=== PATIENT | female | born 1990 | race American Indian/Alaskan Native ===

== ENCOUNTER 2018-11-10 08:11 | Emergency (ER) | payer MEDICAID ==
--- NOTE | 2018-11-10 09:04 | Emergency Department Report ---
ED Female HPI - General Chief complaint: Abdominal Pain Stated complaint: ABD PAIN/CRAMPIMG Time Seen by Provider: 11/10/18 08:49 Source: patient Mode of arrival: Ambulatory Limitations: No Limitations - History of Present Illness Initial comments: This is a 28-year-old after [place] female who presents with lower abdominal pain for 3 days. Patient reports pain is a sharp pain shooting from the lower abdomen to lower back. Patient reports last menstrual period started on 10/22/2018 and she continues to have spotting every since. Patient states she was wearing panty liners which she changed every 2-4 hours. She is A0. She denies vaginal discharge, urinary frequency, urgency, dysuria, or nausea or vomiting. MD Complaint: vaginal bleeding, pelvic pain Onset/Timin -: days(s) Location: suprapubic Radiation: L flank, R flank Severity: moderate Severity scale (0 -10): 6 Quality: sharp Consistency: intermittent Improves with: none Worsens with: none Are you Now?: No Last Menstrual Period: 10/22/18 EDC: 07/29/19 Associated Symptoms: vaginal bleeding. denies: vaginal discharge, abdominal pain, nausea/vomiting, fever/chills, headaches, loss of appetite, dysuria, hematuria, rash, seizure, shortness of breath, syncope, weakness - Related Data Sexually active: Yes : 2 Para: 2 A: 0 Previous Rx's Medication Instructions Recorded Last Taken Type 21/Iron Fu/Folic Acid 1 each PO DAILY #30 tablet 11/10/18 Unknown Rx [ Complete Caplet] Allergies Allergy/AdvReac Type Severity Reaction Status Date / Time No Known Allergies Allergy Unverified 11/10/18 08:15 ED Review of Systems ROS: Stated complaint: ABD PAIN/CRAMPIMG Other details as noted in HPI Constitutional: denies: chills, fever Respiratory: denies: cough, shortness of breath, wheezing Cardiovascular: denies: chest pain, palpitations Gastrointestinal: abdominal pain. denies: nausea, diarrhea Genitourinary: abnormal menses. denies: urgency, dysuria, discharge Musculoskeletal: back pain (lower back). denies: joint swelling, arthralgia Skin: denies: rash, lesions Neurological: denies: headache, weakness, paresthesias Psychiatric: denies: anxiety, depression ED Past Medical Hx - Past Medical History Previous Medical History?: No - Surgical History Past Surgical History?: Yes Hx Cholecystectomy: Yes Additional Surgical History: Tonsilectomy - Social History Smoking Status: Never Smoker Substance Use Type: None - Medications Home Medications: Home Medications Medication Instructions Recorded Confirmed Last Taken Type 21/Iron Fu/Folic Acid 1 each PO DAILY #30 tablet 11/10/18 Unknown Rx [ Complete Caplet] ED Physical Exam - General Limitations: No Limitations General appearance: alert, in no apparent distress - Respiratory Respiratory exam: Present: normal lung sounds bilaterally. Absent: respiratory distress - Cardiovascular Cardiovascular Exam: Present: regular rate, normal rhythm. Absent: systolic murmur, diastolic murmur, rubs, gallop - GI/Abdominal GI/Abdominal exam: Present: soft, tenderness (left lower quadrant tenderness), normal bowel sounds. Absent: distended, guarding, rebound, rigid, organomegaly, mass, bruit, pulsatile mass, hernia - Back Exam Back exam: Present: normal inspection. Absent: CVA tenderness (R), CVA tendern ess (L) - Neurological Exam Neurological exam: Present: alert, oriented X3, normal gait - Psychiatric Psychiatric exam: Present: normal affect, normal mood - Skin Skin exam: Present: warm, dry, intact, normal color. Absent: rash ED Course Vital Signs 11/10/18 11/10/18 08:33 13:11 Temperature 97.6 F Pulse Rate 106 H 96 H Respiratory 18 Rate Blood Pressure 146/81 136/83 O2 Sat by Pulse 99 99 Oximetry ED Medical Decision Making - Lab Data Result diagrams: 11/10/18 08:59 11/10/18 08:59 Lab Results 11/10/18 11/10/18 11/10/18 Range/Units 08:59 08:59 08:59 WBC 5.6 (4.5-11.0) K/mm3 RBC 3.81 (3.65-5.03) M/mm3 Hgb 11.6 (10.1-14.3) gm/dl Hct 33.2 (30.3-42.9) % MCV 87 (79-97) fl MCH 31 (28-32) pg MCHC 35 H (30-34) % RDW 12.8 L (13.2-15.2) % Plt Count 209 (140-440) K/mm3 Lymph % (Auto) 28.9 (13.4-35.0) % [place] % (Auto) 10.5 H (0.0-7.3) % Eos % (Auto) 1.0 (0.0-4.3) % Baso % (Auto) 0.3 (0.0-1.8) % Lymph # 1.6 (1.2-5.4) K/mm3 [place] # 0.6 (0.0-0.8) K/mm3 Eos # 0.1 (0.0-0.4) K/mm3 Baso # 0.0 (0.0-0.1) K/mm3 Seg Neutrophils % 59.3 (40.0-70.0) % Seg Neutrophils # 3.3 (1.8-7.7) K/mm3 Sodium 134 L (137-145) mmol/L Potassium 3.6 (3.6-5.0) mmol/L Chloride 98.8 (98-107) mmol/L Carbon Dioxide 21 L (22-30) mmol/L Anion Gap 18 mmol/L BUN 7 (7-17) mg/dL Creatinine 0.3 L (0.7-1.2) mg/dL Estimated GFR > 60 ml/min BUN/Creatinine Ratio 23 % Glucose 144 H (65-100) mg/dL Calcium 8.8 (8.4-10.2) mg/dL Total Bilirubin 0.60 (0.1-1.2) mg/dL AST 15 (5-40) units/L ALT 13 (7-56) units/L Alkaline Phosphatase 33 L (35-129) units/L Total Protein 6.8 (6.3-8.2) g/dL Albumin 3.8 L (3.9-5) g/dL Albumin/Globulin Ratio 1.3 % HCG, Qual Positive (Negative) HCG, Quant (0-4) mIU/mL 11/10/18 Range/Units 08:59 WBC (4.5-11.0) K/mm3 RBC (3.65-5.03) M/mm3 Hgb (10.1-14.3) gm/dl Hct (30.3-42.9) % MCV (79-97) fl MCH (28-32) pg MCHC (30-34) % RDW (13.2-15.2) % Plt Count (140-440) K/mm3 Lymph % (Auto) (13.4-35.0) % [place] % (Auto) (0.0-7.3) % Eos % (Auto) (0.0-4.3) % Baso % (Auto) (0.0-1.8) % Lymph # (1.2-5.4) K/mm3 [place] # (0.0-0.8) K/mm3 Eos # (0.0-0.4) K/mm3 Baso # (0.0-0.1) K/mm3 Seg Neutrophils % (40.0-70.0) % Seg Neutrophils # (1.8-7.7) K/mm3 Sodium (137-145) mmol/L Potassium (3.6-5.0) mmol/L Chloride (98-107) mmol/L Carbon Dioxide (22-30) mmol/L Anion Gap mmol/L BUN (7-17) mg/dL Creatinine (0.7-1.2) mg/dL Estimated GFR ml/min BUN/Creatinine Ratio % Glucose (65-100) mg/dL Calcium (8.4-10.2) mg/dL Total Bilirubin (0.1-1.2) mg/dL AST (5-40) units/L ALT (7-56) units/L Alkaline Phosphatase (35-129) units/L Total Protein (6.3-8.2) g/dL Albumin (3.9-5) g/dL Albumin/Globulin Ratio % HCG, Qual (Negative) HCG, Quant 44514 H (0-4) mIU/mL Lab Results 11/10/18 11/10/18 11/10/18 Range/Units 08:59 08:59 08:59 WBC 5.6 (4.5-11.0) K/mm3 RBC 3.81 (3.65-5.03) M/mm3 Hgb 11.6 (10.1-14.3) gm/dl Hct 33.2 (30.3-42.9) % MCV 87 (79-97) fl MCH 31 (28-32) pg MCHC 35 H (30-34) % RDW 12.8 L (13.2-15.2) % Plt Count 209 (140-440) K/mm3 Lymph % (Auto) 28.9 (13.4-35.0) % [place] % (Auto) 10.5 H (0.0-7.3) % Eos % (Auto) 1.0 (0.0-4.3) % Baso % (Auto) 0.3 (0.0-1.8) % Lymph # 1.6 (1.2-5.4) K/mm3 [place] # 0.6 (0.0-0.8) K/mm3 Eos # 0.1 (0.0-0.4) K/mm3 Baso # 0.0 (0.0-0.1) K/mm3 Seg Neutrophils % 59.3 (40.0-70.0) % Seg Neutrophils # 3.3 (1.8-7.7) K/mm3 Sodium 134 L (137-145) mmol/L Potassium 3.6 (3.6-5.0) mmol/L Chloride 98.8 (98-107) mmol/L Carbon Dioxide 21 L (22-30) mmol/L Anion Gap 18 mmol/L BUN 7 (7-17) mg/dL Creatinine 0.3 L (0.7-1.2) mg/dL Estimated GFR > 60 ml/min BUN/Creatinine Ratio 23 % Glucose 144 H (65-100) mg/dL Calcium 8.8 (8.4-10.2) mg/dL Total Bilirubin 0.60 (0.1-1.2) mg/dL AST 15 (5-40) units/L ALT 13 (7-56) units/L Alkaline Phosphatase 33 L (35-129) units/L Total Protein 6.8 (6.3-8.2) g/dL Albumin 3.8 L (3.9-5) g/dL Albumin/Globulin Ratio 1.3 % HCG, Qual Positive (Negative) HCG, Quant (0-4) mIU/mL Urine Color (Yellow) Urine Turbidity (Clear) Urine pH (5.0-7.0) Ur Specific [place] (1.003-1.030) Urine Protein (Negative) mg/dL Urine Glucose (UA) (Negative) mg/dL Urine Ketones (Negative) mg/dL Urine Blood (Negative) Urine Nitrite (Negative) Urine Bilirubin (Negative) Urine Urobilinogen (<2.0) mg/dL Ur Leukocyte Esterase (Negative) Urine WBC (Auto) (0.0-6.0) /HPF Urine RBC (Auto) (0.0-6.0) /HPF Urine Mucus /HPF Blood Type Antibody Screen 11/10/18 11/10/18 11/10/18 Range/Units 08:59 11:10 12:56 WBC (4.5-11.0) K/mm3 RBC (3.65-5.03) M/mm3 Hgb (10.1-14.3) gm/dl Hct (30.3-42.9) % MCV (79-97) fl MCH (28-32) pg MCHC (30-34) % RDW (13.2-15.2) % Plt Count (140-440) K/mm3 Lymph % (Auto) (13.4-35.0) % [place] % (Auto) (0.0-7.3) % Eos % (Auto) (0.0-4.3) % Baso % (Auto) (0.0-1.8) % Lymph # (1.2-5.4) K/mm3 [place] # (0.0-0.8) K/mm3 Eos # (0.0-0.4) K/mm3 Baso # (0.0-0.1) K/mm3 Seg Neutrophils % (40.0-70.0) % Seg Neutrophils # (1.8-7.7) K/mm3 Sodium (137-145) mmol/L Potassium (3.6-5.0) mmol/L Chloride (98-107) mmol/L Carbon Dioxide (22-30) mmol/L Anion Gap mmol/L BUN (7-17) mg/dL Creatinine (0.7-1.2) mg/dL Estimated GFR ml/min BUN/Creatinine Ratio % Glucose (65-100) mg/dL Calcium (8.4-10.2) mg/dL Total Bilirubin (0.1-1.2) mg/dL AST (5-40) units/L ALT (7-56) units/L Alkaline Phosphatase (35-129) units/L Total Protein (6.3-8.2) g/dL Albumin (3.9-5) g/dL Albumin/Globulin Ratio % HCG, Qual (Negative) HCG, Quant 84060 H (0-4) mIU/mL Urine Color Yellow (Yellow) Urine Turbidity Clear (Clear) Urine pH 7.0 (5.0-7.0) Ur Specific [place] 1.013 (1.003-1.030) Urine Protein <15 mg/dl (Negative) mg/dL Urine Glucose (UA) Neg (Negative) mg/dL Urine Ketones Neg (Negative) mg/dL Urine Blood Neg (Negative) Urine Nitrite Neg (Negative) Urine Bilirubin Neg (Negative) Urine Urobilinogen 2.0 (<2.0) mg/dL Ur Leukocyte Esterase Neg (Negative) Urine WBC (Auto) 1.0 (0.0-6.0) /HPF Urine RBC (Auto) 4.0 (0.0-6.0) /HPF Urine Mucus Few /HPF Blood Type A POSITIVE Antibody Screen Negative - Radiology Data Radiology results: report reviewed OB US: Viable, single intrauterine . - Medical Decision Making This is a 28 y.o. female presents with vaginal bleeding and abdominal pain for 3 days. Patient was examined by me. Vitals are normal and patient is in no acute distress. Obtained a urinalysis, CBC, hCG quant, and OB ultrasound. Positive [place] . Quant [id number], all other labs unremarkable. Ultrasound dictated by radiologist and report reviewed by myself. Viable, single intrauterine . Patient instructed to have repeat hCG quant in 48 hours with [facility] or in ER to r/o threatened miscarriage. Start vitamins. Instructed to remain on bed rest. Referral to [facility] for continued care. Patient discharged home in stable condition. Critical care attestation.: If time is entered above; I have spent that time in minutes in the direct care of this critically ill patient, excluding procedure time. ED Disposition Clinical Impression: Vaginal bleeding affecting early , Abdominal pain affecting , confirmed by positive blood test Disposition: DC-01 TO HOME OR SELFCARE Is pt being admited?: No Does the pt Need Aspirin: No Condition: Stable Instructions: Threatened Miscarriage (ED), (ED), Abdominal Pain (ED) Additional Instructions: Have repeat hCG quant labs in 48 hours with [facility] or ER. Your hCG quantitative lab on this visit was [id number]. You are 15 weeks 6 days . Your estimated delivery date is 04/28/2019. Remain on bed rest. Follow up with [facility] in 24-48 hours. Return to ER if increased vaginal bleeding, abdominal pain, and low back pain. Prescriptions: 21/Iron Fu/Folic Acid [ Complete Caplet] 1 each PO DAILY #30 tablet Referrals: ADRIAN BERNARD MD [Referring] - 3-5 Days [facility] [Provider Group] - 3-5 Days [facility] [Provider Group] - 3-5 Days [facility] [Provider Group] - 3-5 Days Forms: Work/School Release Form(ED) Time of Disposition: 12:13
[2018-11-10 09:14] LABS: Basophils % (Auto) 0.3 % (0.0-1.8); Eosinophils # (Auto) 0.1 K/mm3 (0.0-0.4); Hematocrit 33.2 % (30.3-42.9); Hemoglobin 11.6 gm/dl (10.1-14.3); Lymphocytes # (Auto) 1.6 K/mm3 (1.2-5.4); Lymphocytes % (Auto) 28.9 % (13.4-35.0); Mean Corpuscular HGB Conc 35 % (30-34); Mean Corpuscular Volume 87 fl (79-97); Monocytes # (Auto) 0.6 K/mm3 (0.0-0.8); Monocytes % (Auto) 10.5 % (0.0-7.3); Platelet Count 209 K/mm3 (140-440); Red Blood Count 3.81 M/mm3 (3.65-5.03); Red Cell Distribution Width 12.8 % (13.2-15.2)
[2018-11-10 09:34] LABS: Alanine Aminotransferase 13 units/L (7-56); Albumin 3.8 g/dL (3.9-5); BUN/Creatinine Ratio 23; Blood Urea Nitrogen 7 mg/dL (7-17); Calcium 8.8 mg/dL (8.4-10.2); Hemolysis Index 2
--- NOTE | 2018-11-10 12:01 | Ultrasound Report ---
OB ULTRASOUND History: vaginal bleeding, positive . Technique: Transabdominal ultrasound with Doppler interrogation. Gestation: Single Position: Transverse with head to maternal left Amniotic Fluid: Within normal limits Placenta: Anterior Placental Grade: 1 Heart Rate: 152 BPM Cervical length: 3.3 cm (Normal > 3 cm) BPD: 3.2 cm = 15 w 6 d HC: 12.0 cm = 16 w 0 d AC: 10.4 cm = 16 w 3 d FL: 1.6 cm = 14 w 6 d HC/AC Ratio: 1.15 Cephalic Index: 85.0 Clinical age = 2 w 5 d EDC: 10/22/18 US Gest. Age = 15 w 6 d EDC: 04/28/19 IMPRESSION: Viable, single intrauterine as described.
[2018-11-10 13:23] VITALS: BP 136/83
[2018-11-10 13:32] LABS: Bilirubin,Urine NEG (Negative); Blood,Urine NEG (Negative); Color,Urine Yellow (Yellow); Mucus,Urine FEW /HPF; Protein,Urine <15 mg/dL mg/dL (Negative)
== END 2018-11-10 14:00 | disposition home or self-care (01) ==
LOC: ED 08:11
DX: O46.91 Antepartum hemorrhage, unspecified, first trimester (principal); O26.891 Other specified pregnancy related conditions, first trimester; R10.9 Unspecified abdominal pain; Z90.49 Acquired absence of other specified parts of digestive tract; Z3A.01 Less than 8 weeks gestation of pregnancy
CPT/HCPCS: 36415; 76805; 80053; 81001; 84702; 84703; 85025; 86850; 86900; 86901

== ENCOUNTER 2019-03-03 00:22 | Inpatient (IN) | payer MEDICAID ==
[2019-03-03] MEDS ORDERED: LACTATED RINGERS 500 ML IV ONE (00:33)
[2019-03-03] MEDS ORDERED: DEXMEDETOMIDINE IV ONE (00:53)
[2019-03-03] MEDS ORDERED: CELESTONE SOLUSPAN IM ONE (01:00)
[2019-03-03] MEDS ORDERED: LACTATED RINGERS 1,000 ML IV SCH ×2 (01:00→05:00)
[2019-03-03] MEDS ORDERED: BICITRA ONE (01:13)
[2019-03-03] MEDS ORDERED: ANCEF/STERILE WATER 2 GM/20 ML 2 GM/20 ML SYRINGE IV ONE (01:13)
[2019-03-03] MEDS ORDERED: PEPCID IV ONE ×2 (01:13→04:57)
[2019-03-03] MEDS ORDERED: PITOCin/NS 20 UNIT/1000ML DRIP 20,000 MILLIUNITS/1,000 ML BAG IV ONE ×2 (01:13→01:52)
[2019-03-03] MEDS ORDERED: REGLAN ONE (01:13)
--- NOTE | 2019-03-03 01:13 | History and Physical Report ---
History of Present Illness Date of examination: 03/03/19 Chief complaint: vaginal bleeding History of present illness: Pt is a 28 year old -[place] female PRESTON 04/28/19 at 32w0d who presents with heavy vaginal bleeding since 11 pm. She also reports contractions since bleeding began. FHTs in 110s with late decelerations with contractions. Abdomen hard and tender all consistent with placental abruption. She has had care with Ms Lei transition manager that has been uncomplicated per pt. Her chart is unavailable for review. Past History Past Medical History: no pertinent history Past Surgical History: cholecystectomy, tonsillectomy Family/Genetic History: none Social history: no significant social history - Obstetrical History Expected Date of Delivery: 04/28/19 Actual Gestation: 32 Week(s) 0 Day(s) : 3 Para: 2 Medications and Allergies Allergies Allergy/AdvReac Type Severity Reaction Status Date / Time No Known Allergies Allergy Unverified 11/10/18 08:15 Home Medications Medication Instructions Recorded Confirmed Last Taken Type 21/Iron Fu/Folic Acid 1 each PO DAILY #30 tablet 11/10/18 Unknown Rx [ Complete Caplet] Acetaminophen [Acetaminophen TAB] 325 mg PO Q6HR PRN #20 tablet 01/12/19 Unknown Rx Dextromethorphan/Benzocaine 1 each PO Q2H PRN #20 lozenge 01/12/19 Unknown Rx [Cepacol Sorethroat-Cough Nancy] Ondansetron [Zofran Odt] 4 mg PO Q8HR PRN #20 tab.rapdis 01/12/19 Unknown Rx Active Meds: Active Medications Lactated Ringer's (Lactated Ringers) 1,000 mls @ 125 mls/hr IV DIRECT ANGEL Review of Systems All systems: negative - Vital Signs Vital signs: Vital Signs Pulse BP 82 134/79 03/03/19 00:30 03/03/19 00:30 Temp Pulse Resp BP Pulse Ox 107 H 144/103 03/03/19 01:05 03/03/19 01:05 - Physical Exam Breasts: Positive: deferred Cardiovascular: Regular rate Lungs: Positive: Clear to auscultation Abdomen: Positive: soft, tenderness (gravid ) Uterus: Positive: enlarged (gravid ) Results All other labs normal. Assessment and Plan A; IUP at 32w0d Vaginal Bleeding Suspected Placental Abruption Nonreassuring status P: Proceed with urgent primary section and other indicated procedures
[2019-03-03] MEDS ORDERED: DIPRIVAN 10 MG/ML IV ONE (01:14)
[2019-03-03] MEDS ORDERED: KETALAR ONE (01:15)
[2019-03-03 01:16] LABS: Basophils % (Auto) 0.5 % (0.0-1.8); Eosinophils # (Auto) 0.1 K/mm3 (0.0-0.4); Eosinophils % (Auto) 1.2 % (0.0-4.3); Hematocrit 31.1 % (30.3-42.9); Hemoglobin 10.7 gm/dl (10.1-14.3); Lymphocytes # (Auto) 2.9 K/mm3 (1.2-5.4); Mean Corpuscular HGB Conc 35 % (30-34); Mean Corpuscular Volume 90 fl (79-97); Monocytes # (Auto) 0.9 K/mm3 (0.0-0.8); Monocytes % (Auto) 8.5 % (0.0-7.3); Platelet Count 157 K/mm3 (140-440); Red Blood Count 3.45 M/mm3 (3.65-5.03); Red Cell Distribution Width 12.6 % (13.2-15.2)
[2019-03-03] MEDS ORDERED: NACL 0.9% IR ONE (01:25)
[2019-03-03] MEDS ORDERED: WATER FOR IRRIG STERILE IR ONE (01:25)
[2019-03-03] MEDS ORDERED: NACL 0.9% 500 ML 500 ML IV ONE (01:39)
[2019-03-03 01:46] LABS: Hepatitis C Virus Antibody Non-Reactive (NonReactive)
[2019-03-03] MEDS ORDERED: XYLOCAINE CARDIAC IV ONE (01:58)
[2019-03-03] MEDS ORDERED: ZEMURON IV ONE (01:58)
[2019-03-03] MEDS ORDERED: BRIDION IV ONE (02:00)
[2019-03-03] MEDS ORDERED: TORADOL ONE (02:04)
--- NOTE | 2019-03-03 02:08 | Ultrasound Report ---
PROCEDURE: US OB LIMITED TECHNIQUE: Limited obstetrical ultrasound HISTORY: R/O Abruption COMPARISONS: Prior examination from November 10 FINDINGS: There is a single viable intrauterine in cephalic presentation. The heart rate is 122 bpm. Limited images obtained of the placenta. The placenta appears thickened and heterogeneous in echotexture. There are intraplacental areas of de creased echotexture. These findings are nonspecific and may be seen with placental abruption. A retroplacental hematoma is not identified. IMPRESSION: Limited images obtained of the placenta show thickened heterogeneous placental echotexture with intra placental areas of decreased echogenicity. The findings are nonspecific and may be seen with placenta l abruption. A periplacental or retroplacental hematoma is not identified. Clinical correlation and follow-up recommended. Single viable intrauterine in cephalic presentation.. This document is electronically signed by Patel Yi MD., March 03 2019 02:06:11 AM ET
--- NOTE | 2019-03-03 02:24 | Anesthesia Consultation ---
Anesthesia Consult and Med Hx Date of service: 03/03/19 - Airway Anesthetic Teeth Evaluation: Good ROM Head & Neck: Adequate Mental/Hyoid Distance: Adequate Mallampati Class: Class II Intubation Access Assessment: Good - Pulmonary Exam CTA: Yes - Cardiac Exam Cardiac Exam: RRR - Pre-Operative Health Status ASA Pre-Surgery Classification: ASA3, Emergency Proposed Anesthetic Plan: General - Pulmonary Hx Smoking: No Hx Asthma: No - Cardiovascular System Hx Hypertension: No - Gastrointestinal Hx Gastroesophageal Reflux Disease: No - Other Systems Hx Alcohol Use: No Hx Substance Use: No Hx Cancer: No Hx Obesity: No
--- NOTE | 2019-03-03 02:25 | Anesthesia Day of Surgery ---
Anesthesia Day of Surgery - Day of Surgery Patient Examined: Yes Patient H&P Reviewed: Yes Patient is NPO: No (Ate Solids at 03/02/191999 Will RSI)
--- NOTE | 2019-03-03 02:25 | Post Anesthesia Evaluation ---
- Post Anesthesia Evaluation Patient Participated: Yes Airway Patent: Yes Stable Respiratory Function: Yes Nausea/Vomiting: No Temp > 96.8F: Yes Pain Manageable: Yes Adequeate Hydration: Yes Anesthesia Complications: No
[2019-03-03] MEDS ORDERED: ZOFRAN IV PRN ×2 (02:26→04:38)
[2019-03-03] MEDS ORDERED: DILAUDID IV PRN (02:26)
[2019-03-03] MEDS ORDERED: MAGNESIUM SULFATE 4GM/100ML 4 GM/100 ML BAG IV ONE (02:26)
[2019-03-03] MEDS ORDERED: NARCAN 0.4 MG/1 ML IV PRN ×2 (02:26→04:38)
[2019-03-03] MEDS ORDERED: PHENERGAN PO PRN (02:26)
[2019-03-03] MEDS ORDERED: PHENERGAN PR PRN (02:26)
[2019-03-03] MEDS: DILAUDID IV PRN ×4 (02:41→03:43)
[2019-03-03] MEDS ORDERED: SODIUM CHLORIDE FLUSH SYRINGE 10 ML IV NR ×2 (03:00→05:00)
[2019-03-03] MEDS: MAGNESIUM SULFATE 40GM/1000ML 40 GM/1,000 ML BAG IV SCH (03:10)
[2019-03-03 03:50] LABS: Hematocrit 29.2 % (30.3-42.9)
[2019-03-03] MEDS ORDERED: MORPHINE PCA 30MG/30ML IV SCH (04:00)
--- NOTE | 2019-03-03 04:28 | Procedure Note ---
OB Delivery Note - Delivery Date of Delivery: 03/03/19 Surgeon: VINNY MORENO Estimated blood loss: other (600 mL) - Section Preop diagnosis: nonreassuring FHR tracing, other (Placental abruption ) Postop diagnosis: same section procedure: section, primary low transverse Disposition: PACU Complications: none Narrative: Please see operative report - Infant A at 1 minute: 5 at 5 minutes: 8 Gender: Male (1771g (3lb 14oz) @ 0130 am)
--- NOTE | 2019-03-03 04:33 | Operative Report ---
Operative Report Operative Report: Date of procedure: March 03, 2019 Preoperative diagnosis: 1) IUP at 32w0d 2) Vaginal Bleeding 3) Placental Abru ption 4) Preeclampsia Postoperative diagnosis: Same Procedure: Primary low transverse section Surgeon: Anya Le M.D. Anesthesia: General endotracheal anesthesia Findings: 1) Viable male , Apgars 5 and 8, weight 1771g, (3 lb 14 oz) in cephalic presentation 2) Blood noted upon entry into the endometrial cavity 2) Normal-appearing uterus ovaries and tubes Estimated blood loss: 600 mL during surgery, 500 mL clot in the uterus IV fluids:1500 mL Urine output: 250 mL, clear at the end of the procedure Drains: Rutherford to gravity Specimens: Placenta to pathology Complications:None. Counts correct x 3 Disposition: Stable to PACU Indication for procedure: The patient is a 28-year-old -Congolese female 3 para 2000 at 32 weeks 0 days who presents with heavy sudden vaginal bleeding, uterine tenderness, nonreassuring status consistent with placental abruption. The decision was made to proceed with delivery. Operation in detail: After the risks, benefits, alternatives and complications were explained to the patient she gave informed consent for the procedure. She was subsequently taken to the operating room where she was subsequently placed in the dorsal supine position with leftward tilt and prepped and draped in a normal sterile fashion. heart tones were noted to be in the 70s prior to incision. A timeout was performed. General anesthesia was then noted to be adequate. A Pfannenstiel skin incision was made with the knife and carried down to the layer of the fascia with the Bovie. The fascia was incised in the midline and the fascial incision was extended bilaterally with the Bovie. The fascial incision was then stretched. The rectus muscles were then in the midline. The peritoneum was then entered bluntly. The peritoneal incision was extended with good visualization of the bladder. The peritoneal incision was then stretched. An Trino self-retaining retractor was placed for visualization. The bladder blade was placed. A transverse incision was made in the lower uterine segment with a knife and extended bilaterally with the bandage scissors. Blood clots were immediately noted upon entry into the endometrial cavity The head was delivered without difficulty followed by shoulders and body. was bulb suctioned at delivery. The cord was clamped and cut and the was handed to NICU staff in attendance. Cord blood was collected. The placenta was then delivered manually. The uterus was then cleared of all clots and debris. The hysterotomy was then reapproximated with 0 Vicryl in a running locked fashion. A second layer of the same suture was used in imbricating fashion. The hysterotomy was inspected and hemostasis was noted. The Trino self-retaining retractor was removed. The gutters were irrigated and cleared of all clots and debris. The hysterotomy was again inspected and noted to be hemostatic. Surgicel was placed over the hysterotomy. The peritoneum was reapproximated with 2-0 Vicryl in a running fashion incorporating the rectus muscles. The fascia was reapproximated with 0 Vicryl in a running fashion. The skin was reapproximated with nanci. The incision was then covered with steri strips and a pressure dressing. The procedure was then ended. The patient tolerated the procedure well and was taken to the PACU in stable condition. All instrument, lap, and needle counts were correct 3.
[2019-03-03] MEDS ORDERED: NORMODYNE IV PRN (04:34)
[2019-03-03] MEDS ORDERED: APRESOLINE IV PRN (04:34)
[2019-03-03] MEDS ORDERED: BICITRA PO ONE (04:37)
[2019-03-03] MEDS ORDERED: MILK OF MAGNESIA PO PRN (04:38)
[2019-03-03] MEDS ORDERED: TUCKS PAD TP PRN (04:38)
[2019-03-03] MEDS ORDERED: TYLENOL PO PRN (04:38)
[2019-03-03] MEDS ORDERED: MORPHINE IV PRN (04:38)
[2019-03-03] MEDS ORDERED: LANSINOH TP PRN (04:38)
[2019-03-03] MEDS: MORPHINE IV PRN ×2 (04:57→12:45)
[2019-03-03] MEDS ORDERED: REGLAN IV ONE (04:57)
[2019-03-03] MEDS ORDERED: D5LR 1,000 ML IV SCH (05:00)
[2019-03-03] MEDS ORDERED: ANCEF/STERILE WATER 2 GM/20 ML 2 GM/20 ML SYRINGE IV NR (05:00)
[2019-03-03] MEDS ORDERED: PITOCin/NS 20 UNIT/1000ML DRIP 20 UNITS/1,000 ML BAG IV SCH ×2 (05:00)
[2019-03-03] MEDS ORDERED: CALCIUM GLUCONATE IV ONE (05:00)
[2019-03-03 05:41] LABS: Bilirubin,Urine NEG (Negative); Blood,Urine NEG (Negative); Color,Urine Yellow (Yellow); Mucus,Urine FEW /HPF; Protein,Urine <15 mg/dL mg/dL (Negative); Urobilinogen,Urine < 2.0 mg/dL (<2.0)
[2019-03-03 05:52] LABS: Amphetamine Screen,Urine PRESUMPTIVE NEGATIVE; Benzodiazepines Screen,Urine PRESUMPTIVE NEGATIVE; Cocaine Screen,Urine PRESUMPTIVE NEGATIVE; Methadone Screen,Urine PRESUMPTIVE NEGATIVE; Opiate Screen,Urine PRESUMPTIVE NEGATIVE
[2019-03-03 05:54] LABS: Alanine Aminotransferase 7 units/L (7-56)
[2019-03-03 06:12] LABS: Uric Acid 4.6 mg/dL (3.5-7.6)
[2019-03-03 06:15] LABS: Cannabinoid Screen,Urine PRESUMPTIVE POSITIVE
[2019-03-03] MEDS ORDERED: LACTATED RINGERS 1,000 ML ONE (08:17)
[2019-03-03] MEDS: TORADOL IV PRN ×3 (08:20→20:15)
[2019-03-03] MEDS: FEOSOL PO SCH (10:36)
[2019-03-03] MEDS: ANCEF/NS 1 GM/50 ML 1 GM/50 ML BAG IV SCH ×2 (12:50→20:16)
[2019-03-03] MEDS: MYLICON PO PRN ×2 (14:51→20:15)
--- NOTE | 2019-03-03 15:18 | Progress Note ---
Assessment and Plan A: Day of Surgery s/p primary section at 32 wks secondary to placental abruption, Preeclampsia with severe features on magensium sulfate, anemia P: Magnesium sulfate x 24 hrs, routine postoperative care. Subjective - Subjective Date of service: 03/03/19 Principal diagnosis: placental abruption at 32 wks, preeclampsia, s/p section Interval history: Pt feeling well apart from intermittent abdominal pain. No burred vision any longer, as well as no headache or RUQ pain. Patient reports: no voiding normally (eden in place ), no flatus, no bowel movement, no ambulating normally (SCDs in place ) : in NICU Objective - Vital Signs Latest vital signs: Vital Signs Temp Pulse Resp BP Pulse Ox 03/03/19 15:07 97 H 143/84 03/03/19 14:52 101 H 125/71 03/03/19 14:37 104 H 141/71 03/03/19 14:22 104 H 147/85 03/03/19 14:07 96 H 138/80 03/03/19 13:52 97 H 141/86 03/03/19 13:37 96 H 151/83 03/03/19 13:22 107 H 132/89 03/03/19 13:08 107 H 162/91 03/03/19 13:07 117 H 147/94 03/03/19 12:52 111 H 150/90 03/03/19 12:37 108 H 148/92 03/03/19 12:22 100 H 138/91 03/03/19 12:07 104 H 155/88 03/03/19 11:52 102 H 148/96 03/03/19 11:37 95 H 149/95 03/03/19 11:22 93 H 106/77 03/03/19 11:07 92 H 144/92 03/03/19 10:52 89 138/85 03/03/19 10:37 93 H 131/95 03/03/19 10:33 93 H 142/73 03/03/19 09:22 101 H 147/90 03/03/19 08:52 96 H 143/86 03/03/19 08:37 98 H 136/87 03/03/19 08:22 100 H 141/88 03/03/19 08:07 100 H 162/98 03/03/19 07:52 109 H 149/91 03/03/19 07:38 99 H 151/90 03/03/19 07:37 98 H 157/95 03/03/19 07:22 95 H 141/73 03/03/19 07:07 99 H 148/77 03/03/19 06:52 93 H 142/79 03/03/19 06:37 88 150/82 03/03/19 06:22 97 H 145/85 03/03/19 06:07 87 147/84 03/03/19 05:52 89 149/82 03/03/19 05:37 95 H 146/81 03/03/19 05:22 97 H 143/91 03/03/19 05:07 97 H 149/87 03/03/19 04:57 18 03/03/19 04:52 99 H 143/79 03/03/19 04:42 86 147/83 03/03/19 04:39 87 162/124 03/03/19 04:37 97.4 F L 20 03/03/19 04:00 93 H 20 142/93 97 03/03/19 03:50 92 H 16 138/90 98 03/03/19 03:43 18 03/03/19 03:35 80 20 132/84 98 03/03/19 03:21 22 03/03/19 03:20 99.7 F H 93 H 21 122/86 98 03/03/19 03:06 27 H 03/03/19 03:05 93 H 21 140/82 99 03/03/19 02:50 95 H 26 H 141/86 100 03/03/19 02:41 25 H 03/03/19 02:35 82 27 H 152/86 100 03/03/19 02:30 90 28 H 150/58 100 03/03/19 02:25 85 29 H 145/87 100 03/03/19 02:20 99.5 F 101 H 36 H 145/76 100 03/03/19 01:14 111 H 98 03/03/19 01:05 107 H 144/103 03/03/19 00:30 82 134/79 Intake and Output 03/03/19 03/03/19 03/03/19 06:59 14:59 22:59 Intake Total 1800 Output Total 850 75 Balance 950 -75 Intake: IV 1800 Output: Urine 850 75 Indwelling Catheter 200 75 Other: Total, Output Amount 50 75 Weight 87.09 g Estimated Blood Loss 600 - Exam Breasts: Present: deferred Cardiovascular: Present: Regular rate Lungs: Present: Clear to auscultation Abdomen: Present: soft, distention (mild ) Uterus: Present: fundal height at umbilicus Extremities: Present: edema Incision: Present: dressed - Labs Labs: Abnormal lab results 03/03/19 03/03/19 03/03/19 Range/Units 00:50 00:50 03:18 RBC 3.45 L (3.65-5.03) M/mm3 Hgb 10.0 L (10.1-14.3) gm/dl Hct 29.2 L (30.3-42.9) % MCHC 35 H (30-34) % RDW 12.6 L (13.2-15.2) % [place] % (Auto) 8.5 H (0.0-7.3) % [place] # 0.9 H (0.0-0.8) K/mm3 Creatinine (0.7-1.2) mg/dL Magnesium (1.7-2.3) mg/dL Lactate Dehydrogenase (91-180) units/L Crossmatch See Detail 03/03/19 03/03/19 Range/Units 04:44 09:05 RBC (3.65-5.03) M/mm3 Hgb (10.1-14.3) gm/dl Hct (30.3-42.9) % MCHC (30-34) % RDW (13.2-15.2) % [place] % (Auto) (0.0-7.3) % [place] # (0.0-0.8) K/mm3 Creatinine 0.5 L (0.7-1.2) mg/dL Magnesium 4.70 H (1.7-2.3) mg/dL Lactate Dehydrogenase 368 H (91-180) units/L Crossmatch
[2019-03-03 16:12] LABS: Hematocrit 28.4 % (30.3-42.9); Hemoglobin 9.6 gm/dl (10.1-14.3)
[2019-03-03] MEDS: PERCOCET 5/325 PO PRN (21:36)
[2019-03-04] MEDS: MAGNESIUM SULFATE 40GM/1000ML 40 GM/1,000 ML BAG IV SCH (00:15)
[2019-03-04] MEDS: PERCOCET 5/325 PO PRN ×4 (03:22→21:07)
[2019-03-04 04:18] LABS: Hematocrit 25.1 % (30.3-42.9); Hemoglobin 8.6 gm/dl (10.1-14.3); Mean Corpuscular HGB Conc 34 % (30-34); Mean Corpuscular Volume 91 fl (79-97); Platelet Count 194 K/mm3 (140-440); Red Blood Count 2.76 M/mm3 (3.65-5.03); Red Cell Distribution Width 12.8 % (13.2-15.2)
[2019-03-04] MEDS ORDERED: M-M-R II VACCINE SUB-Q ONE (06:00)
[2019-03-04] MEDS ORDERED: BOOSTRIX IM ONE (06:00)
[2019-03-04] MEDS: IBUPROFEN PO PRN ×3 (07:55→21:08)
[2019-03-04 09:42] LABS: Anisocytosis 1+; Band Neutrophils # (Manual) 0.1 K/mm3; Basophils % (Manual) 0 % (0.0-1.8); Eosinophils % (Manual) 0 % (0.0-4.3); Hypochromasia 1+; Total Cells Counted 200
[2019-03-04 09:43] LABS: Ovalocytes Few; Platelet Estimate Consistent w Auto
[2019-03-04] MEDS: FEOSOL PO SCH (10:09)
--- NOTE | 2019-03-04 14:21 | Progress Note ---
Assessment and Plan A: POD#1 s/p primary section at 32 wks secondary to placental abruption, Preeclampsia with severe features s/p 24 hrs of magensium sulfate, Asymptomatic anemia Pt request to be discharged tomorrow morning P: Routine postoperative care. Discharge at 5 am on 03/05/19 with follow up in 1 wk for blood pressure checks Subjective - Subjective Date of service: 03/04/19 Principal diagnosis: placental abruption at 32 wks, preeclampsia, s/p section Interval history: Pt is anxious because she reports that she has an appt to receive Section 8 housing tomorrow morning at 10 am and she has been on the waiting list for 5 years. She asks to be discharged in order to attend this meeting. She reports flatus, but denies a bowel movement. She denies PIH symptoms presently. Patient reports: appetite normal, voiding normally, pain well controlled, flatus, ambulating normally, no bowel movement [place]: in NICU Objective - Vital Signs Latest vital signs: Vital Signs Temp Pulse Resp BP BP Pulse Ox 03/04/19 07:44 98.6 F 102 H 16 116/63 98 03/04/19 04:30 98.0 F 82 18 138/83 03/04/19 03:52 96 H 147/87 03/04/19 03:37 94 H 148/85 03/04/19 03:35 90 100 03/04/19 03:30 104 H 100 03/04/19 03:29 103 H 89 03/04/19 03:26 88 100 03/04/19 03:22 88 142/81 03/04/19 03:20 87 100 03/04/19 03:15 88 100 03/04/19 03:11 74 100 03/04/19 03:07 84 136/77 03/04/19 03:05 80 99 03/04/19 03:00 81 100 03/04/19 02:55 96 H 100 03/04/19 02:51 94 H 100 03/04/19 02:45 81 99 03/04/19 02:40 80 99 03/04/19 02:37 84 117/60 03/04/19 02:35 82 98 03/04/19 02:30 80 99 03/04/19 02:25 80 98 03/04/19 02:22 105 H 124/62 03/04/19 02:20 104 H 97 06/30/19 02:15 94 H 98 03/04/19 02:10 84 98 03/04/19 02:07 84 123/60 03/04/19 02:05 82 98 03/04/19 02:00 90 98 03/04/19 01:55 82 98 03/04/19 01:52 96 H 122/58 03/04/19 01:50 90 97 03/04/19 01:45 90 97 03/04/19 01:40 84 98 03/04/19 01:37 82 124/61 03/04/19 01:35 89 98 03/04/19 01:30 83 99 03/04/19 01:25 82 98 03/04/19 01:20 84 98 03/04/19 01:15 90 98 03/04/19 01:10 88 98 03/04/19 01:07 88 125/60 03/04/19 01:05 85 98 03/04/19 01:00 88 98 03/04/19 00:55 83 98 03/04/19 00:52 83 124/63 03/04/19 00:50 86 98 03/04/19 00:45 79 99 03/04/19 00:40 92 H 100 03/04/19 00:37 88 125/58 03/04/19 00:35 87 98 03/04/19 00:30 85 98 03/04/19 00:24 97.5 F L 20 03/04/19 00:22 84 133/63 03/04/19 00:07 86 130/61 03/03/19 23:52 88 138/62 03/03/19 23:38 90 136/66 03/03/19 23:22 90 68/45 03/03/19 23:07 100 H 130/60 03/03/19 22:53 100 H 134/61 03/03/19 22:37 93 H 125/61 03/03/19 22:22 88 131/58 03/03/19 22:07 93 H 121/58 03/03/19 21:52 96 H 124/57 03/03/19 21:37 106 H 121/58 03/03/19 21:22 95 H 128/68 03/03/19 21:07 99 H 118/63 03/03/19 21:00 98.1 F 22 03/03/19 20:39 96 H 159/87 03/03/19 20:37 108 H 163/94 03/03/19 20:22 97 H 149/80 03/03/19 20:07 99 H 149/83 03/03/19 19:58 95 H 148/84 03/03/19 19:52 97 H 144/80 03/03/19 19:37 102 H 146/85 03/03/19 19:22 105 H 160/90 03/03/19 19:07 103 H 155/85 03/03/19 18:52 98 H 153/83 03/03/19 18:37 100 H 152/85 03/03/19 18:22 93 H 157/90 03/03/19 18:07 103 H 160/82 03/03/19 17:52 93 H 153/80 03/03/19 17:37 104 H 149/76 03/03/19 17:22 105 H 141/73 03/03/19 17:07 96 H 148/73 03/03/19 16:52 98 H 148/71 03/03/19 16:37 105 H 154/91 03/03/19 16:22 99 H 153/94 03/03/19 16:07 100 H 156/102 03/03/19 15:52 113 H 147/89 03/03/19 15:37 102 H 141/77 03/03/19 15:22 106 H 142/74 03/03/19 15:07 97 H 143/84 03/03/19 14:52 101 H 125/71 03/03/19 14:37 104 H 141/71 03/03/19 14:22 104 H 147/85 Intake and Output 03/03/19 03/04/19 03/04/19 22:59 06:59 14:59 Intake Total 1480 240 Output Total 1560 950 400 Balance -1560 530 -160 Intake: IV 1000 MAGNESIUM SULFATE 40GM/ 1000 1000ML 40 gm In 1,000 ml @ 2 GM/HR 50 mls/hr IV DIRECT ANGEL Rx#:[id number] Oral 480 240 Output: Urine 1560 950 400 Indwelling Catheter 1560 550 400 Void 400 Other: Total, Intake Amount 240 240 Total, Output Amount 500 400 400 # Voids Indwelling Catheter 1 Void 1 - Exam Breasts: Present: deferred Cardiovascular: Present: Regular rate Lungs: Present: Clear to auscultation Abdomen: Present: soft, distention (mild ), normal bowel sounds Uterus: Present: fundal height below umbilicus Extremities: Present: edema (trace) Incision: Present: dressed - Labs Labs: Abnormal lab results 03/03/19 03/03/19 03/03/19 Range/Units 00:50 16:03 16:03 WBC (4.5-11.0) K/mm3 RBC (3.65-5.03) M/mm3 Hgb 9.6 L (10.1-14.3) gm/dl Hct 28.4 L (30.3-42.9) % RDW (13.2-15.2) % Seg Neuts % (Manual) (40.0-70.0) % Lymphocytes % (Manual) (13.4-35.0) % Seg Neutrophils # Man (1.8-7.7) K/mm3 Monocytes # (Manual) (0.0-0.8) K/mm3 Magnesium 13.20 H (1.7-2.3) mg/dL Crossmatch See Detail 03/03/19 03/04/19 03/04/19 Range/Units 21:15 02:50 02:50 WBC 21.1 H (4.5-11.0) K/mm3 RBC 2.76 L (3.65-5.03) M/mm3 Hgb 8.6 L (10.1-14.3) gm/dl Hct 25.1 L (30.3-42.9) % RDW 12.8 L (13.2-15.2) % Seg Neuts % (Manual) 82.0 H (40.0-70.0) % Lymphocytes % (Manual) 11.5 L (13.4-35.0) % Seg Neutrophils # Man 17.3 H (1.8-7.7) K/mm3 Monocytes # (Manual) 1.3 H (0.0-0.8) K/mm3 Magnesium 5.40 H 5.90 H (1.7-2.3) mg/dL Crossmatch
--- NOTE | 2019-03-04 14:27 | Discharge Summary ---
Providers - Providers Date of Admission: 03/03/19 09:01 Date of discharge: 03/05/19 Attending physician: VINNY MORENO Primary care physician: VINNY MORENO Hospitalization Reason for admission: vaginal bleeding Delivery: Procedure: section, primary low transverse Procedure details: Please see operative note. Incision: intact (with nanci ) Other procedures: other (IV Magnesium Sulfate for 24 hrs for seizure prophylaxis ) Discharge diagnosis: delivery [place] baby: male Hospital course: Pt was admitted with heavy vaginal bleeding and was taken for section for placental abruption at 32 wks. She also had preeclampsia with severe features and was given IV Magensium sulfate for 24 hrs after delivery. Her postoperative course progressed normally until the patient reports that she needs to leave on POD#2 for a section 8 meeting that she has been waiting for for the past 5 years. She will follow up in the office on Tuesday03/07/19 for staple removal. Condition at discharge: Stable Disposition: TO HOME OR SELFCARE - Discharge Diagnoses (1) delivery, delivered Status: Acute (2) Placental abruption in third trimester Status: Acute (3) S/P section Status: Acute (4) Severe preeclampsia Status: Acute Qualifiers: Trimester: third trimester Qualified Code(s): O14.13 - Severe pre- eclampsia, third trimester (5) Vaginal bleeding during Status: Acute (6) Anemia Status: Acute Qualifiers: Anemia type: unspecified type Qualified Code(s): D64.9 - Anemia, unspecified Plan - Discharge Medications Prescriptions: Docusate Sodium [Colace] 100 mg PO BID PRN #60 capsule PRN Reason: Constipation RX: Ferrous Sulfate [Feosol 325 MG tab] 325 mg PO TID #90 tablet Ibuprofen [Motrin] 800 mg PO Q8HR PRN #30 tablet PRN Reason: Pain, Moderate (4-6) oxyCODONE /ACETAMINOPHEN [Percocet 5/325] 1 tab PO Q6HR PRN #30 tablet PRN Reason: Pain - Provider Discharge Summary Activity: routine, no sex for 6 weeks, no heavy lifting 4 weeks, no strenuous exercise Diet: routine Instructions: routine Additional instructions: [] Smoking cessation referral if applicable(refer to patient education folder for contact #) [] Refer to [facility] Booklet Call your doctor immediately for: * Fever > 100.5 * Heavy vaginal bleeding ( >1 pad per hour) * Severe persistent headache * Shortness of breath * Reddened, hot, painful area to leg or breast * Drainage or odor from incision. * Keep incision clean and dry at all times and follow doctor's instructions regarding bathing/showering - Follow up plan Follow up: VINNY MORENO MD [Primary Care Provider] - 03/07/19 (Please call office for an appt for staple removal on March 07 )
[2019-03-04] MEDS ORDERED: TRIPLE ANTIBIOTIC TP SCH (20:00)
[2019-03-04] MEDS: MILK OF MAGNESIA PO SCH (21:09)
[2019-03-05 02:52] VITALS: BP 135/75
[2019-03-05] MEDS: IBUPROFEN PO PRN (04:27)
[2019-03-05] MEDS: MILK OF MAGNESIA PO SCH (04:28)
== END 2019-03-05 05:12 | disposition home or self-care (01) | DRG 765 ==
LOC: LD 00:22 → TRG 00:22 → LD 01:13 → UNDOADMIN 01:13 → LD 09:01 → OB 03-04 04:45
PROVIDERS: ADMIT Obstetrics & Gynecology; ATTEND Obstetrics & Gynecology
PROC: 10D00Z1 Extraction of Products of Conception, Low, Open Approach (ICD-10-PCS; principal; 2019-03-03)
PROC: 3E0234Z Introduction of Serum, Toxoid and Vaccine into Muscle, Percutaneous Approach (ICD-10-PCS; 2019-03-04)
DX: O45.93 Premature separation of placenta, unspecified, third trimester (principal); O60.14X0 Preterm labor third trimester with preterm delivery third trimester, not applicable or unspecified; O14.14 Severe pre-eclampsia complicating childbirth; O76 Abnormality in fetal heart rate and rhythm complicating labor and delivery; O90.81 Anemia of the puerperium; Z90.49 Acquired absence of other specified parts of digestive tract; Z90.89 Acquired absence of other organs; Z23 Encounter for immunization; Z37.0 Single live birth; Z3A.32 32 weeks gestation of pregnancy
CPT/HCPCS: 36415; 76815; 80307; 81001; 82565; 83615; 83735; 84450; 84460; 84550; 85007; 85014; 85018; 85025; 85660; 86592; 86706; 86762; 86803; 86850; 86900; 86901; 86920; 87806; 88307; 90707; G0378; A6250; J0690; J0702; J1170; J1885; J2001; J2270; J2590; J2704; J2765; J3475; J3490; J7120; J7121